=== PATIENT | female | born 1965 | race Native Hawaiian/Other Pacific Islander ===

== ENCOUNTER 2016-03-30 12:57 | Emergency (ER) | payer OTHER ==
[~2016-03-30] VITALS: Ht 154.9 cm; Wt 65.8 kg
[~2016-03-30 12:57] MED LIST: AMBIEN5 MG PO; AMOX500C85 PO; ASA LO-DOSE81 MG PO; AZIT250T3 PO; CLONAZEP ODT0.5 MG OR; CYCL10TA35 PO; FLUT0.05 NAS; GABA300C2 PO; GABA400C2 PO; HYDR-2748 PO; LISI20TA11 PO; LISI20TA24 PO; MILLIPRED DP5 MG OR; MOBIC15 MG OR; MOME50SP; MORPHINE SUL30 M2 PO; NEXIUM40 M1 OR; OXYCODONE30 MG PO; PREDNISONE10 M1 OR; RANI150T78 PO; TRAM50TA PO; XANAX XR1 MG OR
[2016-03-30 13:08] VITALS: BP 133/88; TEMP 98
== END 2016-03-30 13:15 | disposition home or self-care (01) ==
LOC: ED 12:57
DX: Z48.02 Encounter for removal of sutures (principal)

== ENCOUNTER 2016-09-01 03:44 | Outpatient (CLI) | payer OTHER | END 2016-09-01 03:49 | disposition short-term general hospital (02) | LOC: AMB 03:44 | DX: R06.02 Shortness of breath (principal) | CPT/HCPCS: A0425; A0429 ==

== ENCOUNTER 2016-09-01 03:50 | Emergency (ER) | payer OTHER ==
[~2016-09-01] VITALS: Ht 154.9 cm; Wt 59.0 kg
[2016-09-01 04:26] LABS: POTASSIUM 3.1 mmol/L (3.6-5.2)
[2016-09-01 04:31] LABS: PLATELET COUNT 355 K/uL (152-353)
[2016-09-01 05:12] VITALS: BP 146/76; TEMP 98.3
== END 2016-09-01 05:18 | disposition home or self-care (01) ==
LOC: ED 03:50
DX: N39.0 Urinary tract infection, site not specified (principal); F10.10 Alcohol abuse, uncomplicated; F12.10 Cannabis abuse, uncomplicated
CPT/HCPCS: 36415; 80053; 80307; 80320; 81000; 85027; 87077; 87086; 87088; 87186; 96360; 96361; 99284; G0479

== ENCOUNTER 2016-09-03 09:03 | Emergency (ER) | payer OTHER ==
[~2016-09-03] VITALS: Ht 154.9 cm; Wt 59.0 kg
[2016-09-03 09:23] VITALS: BP 130/89; TEMP 98.2
[2016-09-03 09:39] LABS: PLATELET COUNT 352 K/uL (152-353)
[2016-09-03 09:54] LABS: POTASSIUM 4.1 mmol/L (3.6-5.2)
== END 2016-09-03 10:34 | disposition left against medical advice (07) ==
LOC: ED 09:03
PROVIDERS: Specialist
DX: F10.129 Alcohol abuse with intoxication, unspecified (principal)
CPT/HCPCS: 80053; 80307; 80320; 80329; 81000; 85027; 99283; G0479

== ENCOUNTER → 2017-03-07 15:47 | Outpatient (CLI) | payer OTHER | END | disposition home or self-care (01) | LOC: AMB 15:47 | DX: R55 Syncope and collapse (principal) ==

== ENCOUNTER 2017-11-07 23:19 | Inpatient (IN) | payer OTHER ==
[~2017-11-07] VITALS: Ht 152.4 cm; Wt 54.9 kg
[~2017-11-07 23:19] MED LIST changes: -LISITAB PO
[2017-11-07 23:29] VITALS: BP 140/85; TEMP 98.7
[2017-11-07 23:45] VITALS: BP 113/95
[2017-11-07 23:49] LABS: PLATELET COUNT 293 K/uL (152-353)
[2017-11-08] VITALS (22 sets, daily range): BP systolic 103–192; BP diastolic 59–100; TEMP 97–98.8; Ht 152.4 cm; Wt 54.9 kg
[2017-11-08 00:07] LABS: POTASSIUM 4.1 mmol/L (3.6-5.2)
[2017-11-08 06:46] LABS: POTASSIUM 4.8 mmol/L (3.6-5.2)
[2017-11-09] VITALS (14 sets, daily range): BP systolic 156–188; BP diastolic 71–102; TEMP 97.6–98.8
[2017-11-09 13:06] LABS: PLATELET COUNT 233 K/uL (152-353)
[2017-11-09 13:56] LABS: POTASSIUM 4.1 mmol/L (3.6-5.2)
[2017-11-10] VITALS: BP 145/99; TEMP 97.9
[2017-11-10 04:00] VITALS: BP 182/103; TEMP 97.9
[2017-11-10 05:57] LABS: PLATELET COUNT 278 K/uL (152-353)
[2017-11-10 06:08] LABS: POTASSIUM 4.2 mmol/L (3.6-5.2)
[2017-11-10 08:02] VITALS: BP 173/105; TEMP 97.8
[2017-11-10 11:36] VITALS: BP 178/89; TEMP 98.4
[2017-11-10 16:00] VITALS: BP 133/82; BP 167/59; TEMP 98; TEMP 98.4
[2018-04-09] MEDS ORDERED: LISITAB PO (05:26)
[2018-04-10] MEDS ORDERED: LISITAB PO (10:39)
== END 2017-11-10 18:05 | disposition home or self-care (01) | DRG 918 ==
LOC: ED 23:19 → ICU 11-08 00:45 → MED/SURG 11-09 16:05 → EDBD 11-10 18:05 → MED/SURG 11-10 18:05
PROVIDERS: Emergency Medicine
DX: T40.601A Poisoning by unspecified narcotics, accidental (unintentional), initial encounter (principal); T46.4X1A Poisoning by angiotensin-converting-enzyme inhibitors, accidental (unintentional), initial encounter; Y92.89 Other specified places as the place of occurrence of the external cause; I10 Essential (primary) hypertension; F11.10 Opioid abuse, uncomplicated; F10.10 Alcohol abuse, uncomplicated; N39.0 Urinary tract infection, site not specified; B96.20 Unspecified Escherichia coli [E. coli] as the cause of diseases classified elsewhere; K21.9 Gastro-esophageal reflux disease without esophagitis; D64.89 Other specified anemias
CPT/HCPCS: 36415; 51702; 80053; 80076; 80307; 80320; 80329; 81000; 84450; 84460; 85027; 85610; 87077; 87086; 87088; 87186; 93005; 96366; 96367; 96372; 96374; 96376; 99285; J0132; J0696; J0744; J1650; J2310; J3411; J3490; J7120

== ENCOUNTER → 2017-11-07 | Outpatient (CLI) | payer OTHER ==
[~2017-11-07] MED LIST changes: +LISITAB PO
== END | disposition short-term general hospital (02) ==
LOC: AMB 23:05 → EDBD 23:05
DX: T50.902A Poisoning by unspecified drugs, medicaments and biological substances, intentional self-harm, initial encounter (principal)
CPT/HCPCS: A0425; A0429

== ENCOUNTER 2017-11-12 16:48 | Observation (INO) | payer OTHER ==
[~2017-11-12] VITALS: Ht 154.9 cm; Wt 56.2 kg
[2017-11-12 17:05] VITALS: BP 105/65; TEMP 99.3
[2017-11-12 18:00] VITALS: BP 118/65
[2017-11-12 19:00] VITALS: BP 95/54; TEMP 98.5
[2017-11-12 19:08] LABS: PLATELET COUNT 254 K/uL (152-353)
[2017-11-12 19:13] LABS: POTASSIUM 3.9 mmol/L (3.6-5.2)
[2017-11-12 20:15] VITALS: BP 91/55; TEMP 98.4
[2017-11-12 23:51] VITALS: BP 100/57; TEMP 97.5
[2017-11-13 02:09] VITALS: BP 141/75; TEMP 97.6; Ht 154.9 cm; Wt 56.2 kg
[2017-11-13 04:01] VITALS: BP 113/59; TEMP 98.3
[2017-11-13 08:00] VITALS: BP 125/64; TEMP 98
[2017-11-13 12:00] VITALS: BP 120/78; TEMP 98.2
--- NOTE | 2017-11-13 13:35 | NUR ---
IV D/C'D WITH TIP INTACT PRESSURE DRESSING APPLIED.
--- NOTE | 2017-11-13 14:30 | NUR ---
PT D/C'D TO [facility] VIA WC IN STABLE COND PER GENI BELTRAN RN.
== END 2017-11-13 14:30 | disposition other institution (70) ==
LOC: ED 16:48 → MED/SURG 19:50
PROVIDERS: ADMIT Family Medicine
DX: T40.601A Poisoning by unspecified narcotics, accidental (unintentional), initial encounter (principal); T40.7X1A Poisoning by cannabis (derivatives), accidental (unintentional), initial encounter; I10 Essential (primary) hypertension; M54.5 Low back pain
CPT/HCPCS: 36415; 80053; 80307; 81000; 85027; 85610; 85730; 96365; 96366; 99220; 99283; G0378; J3490

== ENCOUNTER 2017-12-04 17:45 | Outpatient (CLI) | payer OTHER | END 2017-12-04 17:53 | disposition short-term general hospital (02) | LOC: AMB 17:45 | DX: R06.02 Shortness of breath (principal) | CPT/HCPCS: A0425; A0427 ==

== ENCOUNTER 2017-12-04 17:57 | Emergency (ER) | payer OTHER ==
[~2017-12-04] VITALS: Ht 154.9 cm; Wt 54.9 kg
[2017-12-04 18:30] LABS: PLATELET COUNT 254 K/uL (152-353)
[2017-12-04 18:43] LABS: POTASSIUM 3.2 mmol/L (3.6-5.2)
[2017-12-04 19:22] VITALS: BP 126/69; TEMP 98.5
== END 2017-12-04 19:25 | disposition home or self-care (01) ==
LOC: ED 17:57
DX: F19.10 Other psychoactive substance abuse, uncomplicated (principal)
CPT/HCPCS: 80053; 80307; 81000; 85027; 96374; 99284; J2310; J3490

== ENCOUNTER 2018-04-08 12:53 | Outpatient (CLI) | payer OTHER ==
[2018-04-09] MEDS ORDERED: LISITAB PO (05:26)
[2018-04-10] MEDS ORDERED: LISITAB PO (10:39)
== END 2018-04-08 13:04 | disposition short-term general hospital (02) ==
LOC: AMB 12:53
DX: R41.82 Altered mental status, unspecified (principal)
CPT/HCPCS: A0425; A0427

== ENCOUNTER 2018-06-18 19:51 | Outpatient (CLI) | payer OTHER ==
[~2018-06-18 19:51] MED LIST changes: +LISITAB PO
== END 2018-06-18 21:40 | disposition short-term general hospital (02) ==
LOC: AMB 19:51
DX: G40.89 Other seizures (principal); D49.6 Neoplasm of unspecified behavior of brain; K85.90 Acute pancreatitis without necrosis or infection, unspecified; N39.0 Urinary tract infection, site not specified; R41.82 Altered mental status, unspecified; R45.1 Restlessness and agitation
CPT/HCPCS: A0425; A0427

== ENCOUNTER 2018-06-20 14:16 | Outpatient (CLI) | payer OTHER | END 2018-06-20 14:18 | disposition short-term general hospital (02) | LOC: AMB 14:16 | DX: G40.89 Other seizures (principal) | CPT/HCPCS: A0425; A0427 ==

== ENCOUNTER 2019-04-09 00:01 | Outpatient (CLI) | payer OTHER ==
[2019-04-10] MEDS ORDERED: BUPR1SUBFM SL (11:34)
[2019-04-10] MEDS ORDERED: PANTOPRAZOLE 40MG TA PO (11:34)
[2019-04-10] MEDS ORDERED: PROAIR HFA INH (11:37)
[2019-04-10] MEDS ORDERED: CITALOPRAM10 M1 PO (11:37)
[2019-04-10] MEDS ORDERED: DIVA500T2 PO (11:38)
[2019-04-10] MEDS ORDERED: TRAZ100T PO (11:38)
[2019-04-15] MEDS ORDERED: FOLI1TAB26 PO (21:19)
[2019-04-15] MEDS ORDERED: BUPRENORPHINE SL (21:19)
[2019-04-15] MEDS ORDERED: NALOXONE SL (21:19)
[2019-04-15] MEDS ORDERED: THIA100T8 PO (21:21)
[2019-04-15] MEDS ORDERED: EFFEXOR 75 MG PO (21:22)
== END 2019-04-09 00:09 | disposition short-term general hospital (02) ==
LOC: AMB 00:01
DX: I10 Essential (primary) hypertension (principal); R11.0 Nausea
CPT/HCPCS: A0425; A0429

== ENCOUNTER 2019-04-09 00:14 | Emergency (ER) | payer OTHER ==
[~2019-04-09] VITALS: Ht 154.9 cm; Wt 52.2 kg
[2019-04-09 01:26] LABS: PLATELET COUNT 268 K/uL (152-353)
[2019-04-09 01:27] LABS: POTASSIUM 3.8 mmol/L (3.6-5.2)
[2019-04-09 06:06] VITALS: TEMP 98.1
[2019-04-09 09:55] VITALS: BP 145/72
[2019-04-10] MEDS ORDERED: BUPR1SUBFM SL (11:34)
[2019-04-10] MEDS ORDERED: PANTOPRAZOLE 40MG TA PO (11:34)
[2019-04-10] MEDS ORDERED: PROAIR HFA INH (11:37)
[2019-04-10] MEDS ORDERED: CITALOPRAM10 M1 PO (11:37)
[2019-04-10] MEDS ORDERED: DIVA500T2 PO (11:38)
[2019-04-10] MEDS ORDERED: TRAZ100T PO (11:38)
== END 2019-04-09 09:55 | disposition other institution (70) ==
LOC: ED 00:14
PROVIDERS: Student in an Organized Health Care Education/Training Program
DX: F19.94 Other psychoactive substance use, unspecified with psychoactive substance-induced mood disorder (principal); F19.959 Other psychoactive substance use, unspecified with psychoactive substance-induced psychotic disorder, unspecified; J18.9 Pneumonia, unspecified organism; F17.210 Nicotine dependence, cigarettes, uncomplicated
CPT/HCPCS: 36415; 80053; 80307; 80320; 80329; 81000; 84443; 85027; 87077; 87086; 87088; 87186; 96361; 96365; 96366; 96372; 96375; 99285; J0456; J0696; J1200; J1630; J2060; Q9963